=== PATIENT | female | born 2000 | race Caucasian/White ===

== ENCOUNTER 2019-08-28 16:05 | Inpatient (IN) | payer BC ==
--- NOTE | 2019-08-28 16:34 | ED ---
Psychiatric Complaint - HPI Summary HPI Summary: 19-year-old female with a significant past medical history of previous suicide attempt and suicidal ideation presents to the emergency department today with a chief complaint of suicidal ideation. At this time patient does not have a plan but she says "last time I took a bunch of my antidepressants but my mom has them locked up and I cannot do that again." The patient currently denies homicidal ideation. Patient is sent here after suggesting suicidal comments to her counselor and mother and her mother saw a suicide note she wrote. Patient states that yesterday evening she used a razor blade to make to superficial lacerations to her left anterior wrist as well as her right medial thigh. These are not deep enough to require intervention. Patient denies recreational drug use or alcohol use. Patient currently denies pain, fever, cough, sore throat, chest and abdominal pain, pain with urination, rash, nausea, vomiting, diarrhea. - History Of Current Complaint Chief Complaint: EDSuicidal Hx Obtained From: Patient Onset/Duration: Gradual Onset Timing: Constant Character: Depressed, Anxious Related History: Positive For: Prior Psychiatric Issues Has Suicidal: Reports: Thoughts, Demonstrates Gesture. Denies: With A Plan Has Homicidal: Denies: Thoughts, With A Plan, Demonstrates Gesture - Allergies/Home Medications Allergies/Adverse Reactions: Allergies Allergy/AdvReac Type Severity Reaction Status Date / Time No Known Allergies Allergy Verified 08/28/19 16:12 Home Medications: Home Medications Prazosin 1 mg CAP [Minipress 1 mg CAP] 1 mg PO QPM 08/28/19 [History Confirmed 08/28/19] hydrOXYzine pamoate [Vistaril] 25 mg PO BEDTIME PRN 08/28/19 [History Confirmed 08/28/19] lamoTRIgine TAB(*) [LaMICtal TAB(*)] 25 mg PO DAILY 08/28/19 [History Confirmed 08/28/19] PMH/Surg Hx/FS Hx/Imm Hx Infectious Disease History: No Infectious Disease History: Denies: Traveled Outside the [place] in Last 30 Days Review of Systems Constitutional: Negative Eyes: Negative ENT: Negative Cardiovascular: Negative Respiratory: Negative Gastrointestinal: Negative Genitourinary: Negative Musculoskeletal: Negative Skin: Negative Neurological/Mental Status: Negative Positive: Anxious All Other Systems Reviewed And Are Negative: Yes Physical Exam - Summary Physical Exam Summary: Patient is in no distress. There are 2 superficial lacerations noted to the anterior left wrist which are approximately 6 cm in length. Patient has good eye contact however she does have a flat affect. Patient thought process is logical and coherent. No evidence of drug induced toxidrome. Triage Information Reviewed: Yes Vital Signs On Initial Exam: Initial Vitals Temp Pulse Resp BP Pulse Ox 99.6 F 74 16 166/77 100 08/28/19 16:06 08/28/19 16:06 08/28/19 16:06 08/28/19 16:06 08/28/19 16:06 Vital Signs Reviewed: Yes Appearance: Positive: Well-Appearing, No Pain Distress, Well-Nourished Skin: Positive: Warm, Skin Color Reflects Adequate Perfusion Eyes: Positive: EOMI, ABDELRAHMAN ENT: Positive: Hearing grossly normal Respiratory/Lung Sounds: Positive: Clear to Auscultation, Breath Sounds Present Cardiovascular: Positive: RRR, S1, S2 Neurological: Positive: Sensory/Motor Intact, Alert, Oriented to Person Place, Time, Normal Gait, Facial Symmetry, Speech Normal Psychiatric: Positive: Normal, Affect/Mood Appropriate AVPU Assessment: Alert Procedures - Sedation Patient Received Moderate/Deep Sedation with Procedure: No Diagnostics - Vital Signs Vital Signs Temp Pulse Resp BP Pulse Ox 08/28/19 16:06 99.6 F 74 16 166/77 100 - Laboratory Result Diagrams: 08/28/19 17:48 08/28/19 17:48 Lab Statement: Any lab studies that have been ordered have been reviewed, and results considered in the medical decision making process. Course/Dx - Course Course Of Treatment: Patient was evaluated in the emergency department today for suicidal ideation. Patient was seen and examined. Vitals noted. Patient was placed in a safe round and under observation. Patient belongings were collected and laboratory studies and urinalysis including toxicology was obtained. Laboratory studies returned showing no abnormalities. urinalysis appears contaminated however patient has no genitourinary symptoms. Toxicology screening negative. Patient was medically cleared for mental health evaluation and disposition by psychiatric services. Psychiatry, Dr. Busch the patient needed inpatient therapy. Patient was admitted to [facility]'s psychiatric unit with a diagnosis of mood disorder unspecified. - Differential Dx/Clinical Impression Differential Diagnosis/HQI/PQRI: Positive: Acute Psychosis, Anxiety, Depression , Suicidal Ideation, Suicidal Gesture Provider Diagnosis: Suicidal ideation, Mood disorder - Critical Care Time Critical Care Statement: Critical care time is provided exclusive of any time spent performing procedures. Discharge ED - Sign-Out/Discharge Documenting (check all that apply): Patient Departure - Discharge Plan Condition: Stable [place] [place]: Abdi Crespo NP [Primary Care Provider] - - Billing Disposition and Condition Condition: STABLE Disposition: Psychiatric Facility [facility] [place]
[2019-08-28 16:45] LABS: Urine Appearance Turbid; Urine Bilirubin Negative (Negative); Urine Blood 3+ (Negative); Urine Glucose Negative (Negative); Urine Ketones Negative (Negative); Urine Nitrite Negative (Negative); Urine Protein 1+(30 mg/dL) (Negative); Urine Urobilinogen Negative (Negative)
[2019-08-28 16:57] LABS: Urine Color Amber
[2019-08-28 16:58] LABS: Urine Bacteria Absent (Absent); Urine Red Blood Cell 3+(>10/hpf) (Absent); Urine Squamous Epithelial Cell Present (Absent); Urine White Blood Cell 1+(6-10/hpf) (Absent)
[2019-08-28 17:01] LABS: Urine Benzodiazepine Screen None Detected (None Detect); Urine Opiates Screen None Detected (None Detect)
[2019-08-28 18:01] LABS: ABS Basophils 0.1 10^3/ul (0-0.2); ABS Eosinophils 0.2 10^3/ul (0-0.6); ABS Lymphocytes 2.9 10^3/ul (1.0-4.8); ABS Monocytes 0.6 10^3/ul (0-0.8); ABS Neutrophils 6.4 10^3/ul (1.5-7.7); Eosinophil % 2.2 %; Hematocrit 41 % (35-47); Hemoglobin 13.8 g/dL (12.0-16.0); Lymphocyte % 28.9 %; Mean Corpuscular HGB Conc 34 g/dL (31-36); Mean Corpuscular Hemoglobin 30 pg (27-31); Mean Corpuscular Volume 88 fL (80-97); Mean Platelet Volume 8.4 fL (7.4-10.4); Nucleated Red Blood Cells % 0.1; Platelet Count 309 10^3/uL (150-450); Red Blood Count 4.65 10^6 /uL (3.70-4.87); Red Cell Distribution Width 14 % (10-15); White Blood Count 10.2 10^3/uL (3.5-10.8)
[2019-08-28 18:14] LABS: ALT 16 U/L (7-52); AST 16 U/L (13-39); Albumin 4.4 g/dL (3.2-5.2); Albumin/Globulin Ratio 1.4 (1-3); Alkaline Phosphatase 76 U/L (34-104); Anion Gap 5 mmol/L (2-11); BUN/Creatinine Ratio 10.5 (8-20); Blood Urea Nitrogen 12 mg/dL (6-24); CO2 Carbon Dioxide 27 mmol/L (22-32); Calcium 9.7 mg/dL (8.6-10.3); Chloride 105 mmol/L (101-111); EGFR African American 73.5 (>60); EGFR Non-African American 60.8 (>60); Globulin 3.2 g/dL (2-4); Glucose 94 mg/dL (70-100); Potassium 4.1 mmol/L (3.5-5.0); Sodium 137 mmol/L (135-145); Total Protein 7.6 g/dL (6.4-8.9)
[2019-08-28 18:44] LABS: Alcohol < 10 mg/dL (<10); Salicylate < 2.50 mg/dL (<30)
[2019-08-28 18:56] LABS: TSH (Thyroid Stimulating Horm) 0.58 mcIU/mL (0.34-5.60)
[2019-08-28 19:02] LABS: Acetaminophen < 15 mcg/mL
[2019-08-28] MEDS ORDERED: Al Hydrox/Mg Hydrox/Simet LIQ* 30 ML UDC PO PRN (19:50)
[2019-08-29] MEDS: Vitamin THERAPEUTIC TAB PO SCH (08:08)
[2019-08-29] MEDS: lamoTRIgine TAB(*) 25 MG PO SCH (08:08)
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
--- NOTE | 2019-08-29 11:53 | PN ---
BSU: Group Therapy Note - Service Type Service Type: [id number] Group Psychotherapy - Cognitive Behavioral Group Therapy ( CBT):Patient was attentive and participatory in CBT programming this morning, and remained in good behavioral control. Patient expressed positive insights regarding relevant treatment interventions and goals.
[2019-08-29 14:50] LABS: HCG Pregnancy < 0.60 mIU/mL
[2019-08-29 14:56] LABS: Cholesterol 164 mg/dL; HDL Cholesterol 57.1 mg/dL; LDL Cholesterol 77 mg/dL; Triglycerides 150 mg/dL
[2019-08-29] MEDS: hydrOXYzine HCL TAB* 25 MG PO PRN (19:04)
[2019-08-29] MEDS: Acetaminophen TAB* 325 MG PO PRN (21:32)
[2019-08-30] MEDS: lamoTRIgine TAB(*) 25 MG PO SCH (08:15)
[2019-08-30] MEDS: Vitamin THERAPEUTIC TAB PO SCH (08:15)
--- NOTE | 2019-08-30 10:14 | PN ---
Subjective - Subjective Date of Service: 08/30/19 Service Type: [id number] Hosp care 35 min high complexity Subjective: Nursing Report: Patient was visible on unit, no behavioral incidents. Slept 6hrs overnight. Attending group activities. CC: "okay This patient was seen and evaluated today. She reported she feels safe on the unit and is interacting with peers. She reported having adequate appetite and sleep. The patient reports attending day groups. Per nursing no behavioral issues or overnight events reported. Patient reported that she is tolerating medications without side effects. Patient wants to learn, develop and implement coping skills. Objective - General Observations Appearance: Neat Appears Stated Age: Yes Stature: Overweight Posture: Slumped Eye Contact: Average Behavior/Activity: Slowed - Interaction Observations Attitude Towards Examiner: Cooperative Stated Mood: Dysphoric Affect: Restricted Speech Pattern/Tone: Normal Volume Thought Process: Coherent, Goal Directed Perception: WNL Thought Content: Preoccupation/Ruminations, Self-Deprecatory Thought Process: Lethality: Passive Wish Hallucination Type: Denies Delusion Type: Denies - Cognitive Function Orientation: A&O x 4 Level of Consciousness: Awake Cognition: WNL Estimated Intelligence: Normal - Medication Compliance Cooperative with Inpatient Medication Regimen: Yes - Group Participation Participates in Group Activities: Yes Assessment - Assessment Merits Inpatient Hospitalization: For Immediate Safety Clinical Impression: 19 year old Female with a history of bipolar disorder and Borderline personality disorder presented to the emergency department with her mother after writing a suicide note and was admitted to the B[facility] at [facility]. Plan - Plan Treatment Plan: Name: SHO CANNON Birthdate: 2000 [id number] #Q30 minute observation with staff pass and computer # The patient requires psychiatric inpatient admission at this time to assure safety, receive treatment and work toward stabilization. # B-HCG was ordered and is negative # Obtain collateral information from her mother # Collaboration with Geriatric Physical Therapist Marj Corral # MMPI results indicate borderline personality disorder and low self esteem. # Continue lamotrigine 25mg daily for mood # Continue hydroxyzine 25mg qhs for sleep # Continue prazosin 1mg qhs for nightmares #Goals before discharge include: Psychiatric Stabilization Continued Medication Management: Continue Outpt Medication Medications: Current Medications Acetaminophen (Tylenol Tab*) 650 mg PO Q4H PRN PRN Reason: PAIN or TEMP > 101 F Last Admin: 08/29/19 21:32 Dose: 650 mg Al Hydrox/Mg Hydrox/Simethicone (Maalox Plus*) 30 ml PO Q4H PRN PRN Reason: INDIGESTION Hydroxyzine HCl (Atarax Tab*) 25 mg PO BEDTIME PRN PRN Reason: ANXIETY Last Admin: 08/29/19 19:04 Dose: 25 mg Lamotrigine (Lamictal Tab(*)) 25 mg PO DAILY [facility] Last Admin: 08/30/19 08:15 Dose: 25 mg Multivitamins (Theragran Tab*) 1 tab PO DAILY [facility] Last Admin: 08/30/19 08:15 Dose: 1 tab Prazosin HCl (Minipress 1 Mg Cap) 1 mg PO BEDTIME [facility] Last Admin: 08/29/19 21:32 Dose: 1 mg - Discharge Plan Discharge Plan: Inpatient Hospitalization
[2019-08-30] MEDS: hydrOXYzine HCL TAB* 25 MG PO PRN (18:58)
[2019-08-31] MEDS: lamoTRIgine TAB(*) 25 MG PO SCH (09:11)
[2019-08-31] MEDS: Vitamin THERAPEUTIC TAB PO SCH (09:11)
[2019-08-31] MEDS: Acetaminophen TAB* 325 MG PO PRN (14:28)
[2019-08-31] MEDS ORDERED: Saline NASAL SPRAY 0.65%* BTL BOTH NARES PRN (20:48)
[2019-08-31] MEDS: hydrOXYzine HCL TAB* 25 MG PO PRN (21:21)
--- NOTE | 2019-08-31 21:24 | PN ---
Subjective - Subjective Date of Service: 08/31/19 Service Type: 52597 Hosp care 15 min low complexity Subjective: Anette reports her mood is "good, happy." She reports sleeping only 4 hours last night, but that this is an improvement. She denies any dangerous intent or plan of any kind. She reports attending all groups. Objective - General Observations Appearance: Neat Appears Stated Age: Yes Stature: WNL Posture: WNL Eye Contact: Average Behavior/Activity: WNL - Interaction Observations Attitude Towards Examiner: Cooperative Stated Mood: Euthymic Affect: Full Perception: WNL Thought Content: WNL Hallucination Type: None Delusion Type: None - Cognitive Function Orientation: A&O x 4 Level of Consciousness: Awake, Alert, Appropriate Cognition: WNL Estimated Intelligence: Normal Insight: WNL Judgment Within Normal Limits: Yes - Medication Compliance Cooperative with Inpatient Medication Regimen: Yes - Group Participation Participates in Group Activities: Yes Assessment - Assessment Merits Inpatient Hospitalization: For Immediate Safety, For Stabilization, For Discharge Planning Clinical Impression: 19 year old Female with a history of bipolar disorder and Borderline personality disorder presented to the emergency department with her mother after writing a suicide note and was admitted to the BSU at [facility]. 08.31.19 - reports improved sleep, good mood, no dangerous intent or plan Plan - Plan Treatment Plan: Name: ANETTE CANNON Birthdate: 2000 [id number] #Q30 minute observation with staff pass and computer # The patient requires psychiatric inpatient admission at this time to assure safety, receive treatment and work toward stabilization. # B-HCG was ordered and is negative # Obtain collateral information from her mother # Collaboration with Twisting Frame Changer Marj Corral # MMPI results indicate borderline personality disorder and low self esteem. # Continue lamotrigine 25mg daily for mood # Continue hydroxyzine 25mg qhs for sleep # Continue prazosin 1mg qhs for nightmares #Goals before discharge include: Psychiatric Stabilization 08.31.19 - continue current plan Continued Medication Management: Continue Outpt Medication Medications: Current Medications Acetaminophen (Tylenol Tab*) 650 mg PO Q4H PRN PRN Reason: PAIN or TEMP > 101 F Last Admin: 08/31/19 14:28 Dose: 650 mg Al Hydrox/Mg Hydrox/Simethicone (Maalox Plus*) 30 ml PO Q4H PRN PRN Reason: INDIGESTION Hydroxyzine HCl (Atarax Tab*) 25 mg PO BEDTIME PRN PRN Reason: ANXIETY Last Admin: 08/30/19 18:58 Dose: 25 mg Lamotrigine (Lamictal Tab(*)) 25 mg PO DAILY [facility] Last Admin: 08/31/19 09:11 Dose: 25 mg Multivitamins (Theragran Tab*) 1 tab PO DAILY [facility] Last Admin: 08/31/19 09:11 Dose: 1 tab Prazosin HCl (Minipress 1 Mg Cap) 1 mg PO BEDTIME [facility] Last Admin: 08/30/19 21:40 Dose: 1 mg Sodium Chloride (Sodium Chloride 0.65% Nasal [place]*) 2 spray BOTH NARES Q6H PRN PRN Reason: DRYNESS - Discharge Plan Discharge Plan: Outpatient Follow Up - Dr Murray at [facility], therapist at [facility]
[2019-09-01] MEDS: lamoTRIgine TAB(*) 25 MG PO SCH (08:21)
[2019-09-01] MEDS: Vitamin THERAPEUTIC TAB PO SCH (08:21)
[2019-09-01] MEDS: hydrOXYzine HCL TAB* 25 MG PO PRN (20:47)
--- NOTE | 2019-09-02 08:42 | PN ---
Subjective - Subjective Date of Service: 09/02/19 Service Type: [id number] Hosp care 35 min high complexity Subjective: Nursing Report: Patient was visible on unit, no behavioral incidents. Attending group activities. CC: "I am doing better This patient was seen and evaluated today. She reported that during this hospitalization she learned distraction as a coping skill. She expressed that things are better since admission. She is requesting something for sleep other than hydroxyzine. She spoke with her mother over the weekend. She reported having adequate appetite and slept 6 hours. The patient reports attending day groups. Per nursing no behavioral issues or overnight events reported. Patient reported that she is tolerating medications without side effects. Objective - General Observations Appearance: Neat Appears Stated Age: Yes Stature: WNL Posture: Slumped Eye Contact: Average Behavior/Activity: WNL - Interaction Observations Attitude Towards Examiner: Cooperative, Anxious Stated Mood: Euthymic Affect: Restricted Speech Pattern/Tone: Clear, Appropriate Thought Process: Coherent Perception: WNL Thought Content: Preoccupation/Ruminations, Depressive Hallucination Type: Denies Delusion Type: Denies - Cognitive Function Orientation: A&O x 4 Level of Consciousness: Awake Cognition: WNL Estimated Intelligence: Normal - Medication Compliance Cooperative with Inpatient Medication Regimen: Yes - Group Participation Participates in Group Activities: Yes Assessment - Assessment Merits Inpatient Hospitalization: For Immediate Safety Clinical Impression: 19 year old Female with a history of bipolar disorder and Borderline personality disorder presented to the emergency department with her mother after writing a suicide note and was admitted to the BSU at [facility]. Plan - Plan Treatment Plan: Name: SHO CANNON Birthdate: 2000 [id number] #Q30 minute observation with staff pass and computer # The patient requires psychiatric inpatient admission at this time to assure safety, receive treatment and work toward stabilization. # B-HCG was ordered and is negative # Obtained collateral information from her mother Fe who confirmed no access to firearms and is in agreement with discharge plan # Collaboration with Environmental Programs Manager Marj Corral # MMPI results indicate borderline personality disorder and low self esteem. # Continue lamotrigine 25mg daily for mood # Discontinue hydroxyzine 25mg qhs for sleep # Start trazodone 50mg qhs # Continue prazosin 1mg qhs for nightmares # Follow up with Dr. Murray on September 09 #Goals before discharge include: Psychiatric Stabilization # Tentative discharge Monday at 1pm Continued Medication Management: Continue Outpt Medication Medications: Current Medications Acetaminophen (Tylenol Tab*) 650 mg PO Q4H PRN PRN Reason: PAIN or TEMP > 101 F Last Admin: 08/31/19 14:28 Dose: 650 mg Al Hydrox/Mg Hydrox/Simethicone (Maalox Plus*) 30 ml PO Q4H PRN PRN Reason: INDIGESTION Hydroxyzine HCl (Atarax Tab*) 25 mg PO BEDTIME PRN PRN Reason: ANXIETY Last Admin: 09/01/19 20:47 Dose: 25 mg Lamotrigine (Lamictal Tab(*)) 25 mg PO DAILY [facility] Last Admin: 09/01/19 08:21 Dose: 25 mg Multivitamins (Theragran Tab*) 1 tab PO DAILY [facility] Last Admin: 09/01/19 08:21 Dose: 1 tab Prazosin HCl (Minipress 1 Mg Cap) 1 mg PO BEDTIME [facility] Last Admin: 09/01/19 20:47 Dose: 1 mg Sodium Chloride (Sodium Chloride 0.65% Nasal [place]*) 2 spray BOTH NARES Q6H PRN PRN Reason: DRYNESS Last Admin: 09/01/19 11:02 Dose: 2 spray - Discharge Plan Discharge Plan: Inpatient Hospitalization
[2019-09-02] MEDS: Vitamin THERAPEUTIC TAB PO SCH (08:57)
[2019-09-02] MEDS: lamoTRIgine TAB(*) 25 MG PO SCH (08:57)
[2019-09-02] MEDS ORDERED: traZODone TAB* 50 MG TAB PO SCH (21:00)
[2019-09-03 08:25] VITALS: BP 107/60
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
[2019-09-03] MEDS: lamoTRIgine TAB(*) 25 MG PO SCH (09:09)
[2019-09-03] MEDS: Vitamin THERAPEUTIC TAB PO SCH (09:09)
== END 2019-09-03 12:35 | disposition home or self-care (01) | DRG 753 ==
LOC: ED 16:05 → BSU 20:10
PROVIDERS: ADMIT Psychiatry & Neurology Psychiatry; ATTEND Psychiatry & Neurology Psychiatry
DX: F31.30 Bipolar disorder, current episode depressed, mild or moderate severity, unspecified (principal); R45.851 Suicidal ideations; F60.3 Borderline personality disorder; F41.1 Generalized anxiety disorder; Z81.8 Family history of other mental and behavioral disorders; Z81.1 Family history of alcohol abuse and dependence
CPT/HCPCS: 36415; 80053; 80061; 80307; 80320; 80329; 81003; 81015; 83036; 84443; 84702; 85025; 87086; 90853; 99222; 99231; 99233; 99284; A9270-GY; G0480

== ENCOUNTER 2020-01-05 11:53 | Inpatient (IN) ==
[2020-01-05 12:38] LABS: ABS Eosinophils 0.1 10^3/ul (0-0.6); ABS Monocytes 0.5 10^3/ul (0-0.8); ABS Neutrophils 4.7 10^3/ul (1.5-7.7); Eosinophil % 1.6 %; Hematocrit 37 % (35-47); Hemoglobin 12.7 g/dL (12.0-16.0); Lymphocyte % 35.7 %; Mean Corpuscular HGB Conc 34 g/dL (31-36); Mean Corpuscular Hemoglobin 30 pg (27-31); Mean Corpuscular Volume 88 fL (80-97); Platelet Count 315 10^3/uL (150-450); Red Blood Count 4.23 10^6 /uL (3.70-4.87); Red Cell Distribution Width 13 % (10-15); White Blood Count 8.4 10^3/uL (3.5-10.8)
[2020-01-05 12:49] LABS: Urine Appearance Clear; Urine Bilirubin Negative (Negative); Urine Blood Negative (Negative); Urine Color Yellow; Urine Glucose Negative (Negative); Urine Ketones Negative (Negative); Urine Nitrite Negative (Negative); Urine Protein Negative (Negative); Urine Specific Gravity 1.014 (1.010-1.030); Urine Urobilinogen Negative (Negative)
[2020-01-05 12:53] LABS: ALT 11 U/L (7-52); AST 13 U/L (13-39); Albumin/Globulin Ratio 1.3 (1-3); Alkaline Phosphatase 59 U/L (34-104); Anion Gap 6 mmol/L (2-11); BUN/Creatinine Ratio 13.2 (8-20); Blood Urea Nitrogen 10 mg/dL (6-24); CO2 Carbon Dioxide 25 mmol/L (22-32); Calcium 9.6 mg/dL (8.6-10.3); Chloride 105 mmol/L (101-111); EGFR African American 117.4 (>60); Globulin 3.1 g/dL (2-4); Glucose 105 mg/dL (70-100); Potassium 3.8 mmol/L (3.5-5.0); Sodium 136 mmol/L (135-145); Total Protein 7.1 g/dL (6.4-8.9)
[2020-01-05 12:54] LABS: Urine Benzodiazepine Screen None Detected (None Detect); Urine Cannabinoids Screen None Detected (None Detect); Urine Opiates Screen None Detected (None Detect)
[2020-01-05 13:01] LABS: HCG Pregnancy < 0.60 mIU/mL
[2020-01-05 13:21] LABS: Acetaminophen < 15 mcg/mL; Alcohol, S < 10 mg/dL (<10); Salicylate < 2.50 mg/dL (<30)
[2020-01-05] MEDS ORDERED: Saline NASAL SPRAY 0.65% BTL BOTH NARES PRN (15:40)
[2020-01-05] MEDS: DESOG PO SCH (20:54)
[2020-01-05] MEDS: ETHINYL ESTRAD PO SCH (20:54)
[2020-01-05] MEDS: [UNRECOGNIZED DRUG - OTHER] PO SCH (20:54)
[2020-01-06] MEDS: Vitamin THERAPEUTIC TAB PO SCH (08:35)
[2020-01-06 11:34] LABS: TSH Ultra Thyroid Stim Horm 1.49 mcIU/mL (0.34-5.60)
[2020-01-06] MEDS: ETHINYL ESTRAD PO SCH (20:25)
[2020-01-06] MEDS: [UNRECOGNIZED DRUG - OTHER] PO SCH (20:25)
[2020-01-06] MEDS: DESOG PO SCH (20:25)
[2020-01-07] MEDS: Vitamin THERAPEUTIC TAB PO SCH (08:15)
[2020-01-07] MEDS: Al Hydrox/Mg Hydrox/Simet LIQ 30 ML UDC PO PRN (12:58)
[2020-01-07] MEDS: ETHINYL ESTRAD PO SCH (21:37)
[2020-01-07] MEDS: DESOG PO SCH (21:37)
[2020-01-07] MEDS: [UNRECOGNIZED DRUG - OTHER] PO SCH (21:37)
[2020-01-08] MEDS: Vitamin THERAPEUTIC TAB PO SCH (08:20)
[2020-01-08] MEDS: [UNRECOGNIZED DRUG - OTHER] PO SCH (20:37)
[2020-01-08] MEDS: DESOG PO SCH (20:37)
[2020-01-08] MEDS: ETHINYL ESTRAD PO SCH (20:37)
[2020-01-09 07:23] LABS: HDL Cholesterol 47.9 mg/dL
[2020-01-09] MEDS: Vitamin THERAPEUTIC TAB PO SCH (09:50)
[2020-01-09] MEDS: DESOG PO SCH (20:42)
[2020-01-09] MEDS: [UNRECOGNIZED DRUG - OTHER] PO SCH (20:42)
[2020-01-09] MEDS: ETHINYL ESTRAD PO SCH (20:42)
[2020-01-10] MEDS: Vitamin THERAPEUTIC TAB PO SCH (09:15)
[2020-01-10] MEDS: ETHINYL ESTRAD PO SCH (20:02)
[2020-01-10] MEDS: DESOG PO SCH (20:02)
[2020-01-10] MEDS: [UNRECOGNIZED DRUG - OTHER] PO SCH (20:02)
[2020-01-11] MEDS: Vitamin THERAPEUTIC TAB PO SCH (08:40)
[2020-01-11] MEDS: DESOG PO SCH (20:26)
[2020-01-11] MEDS: ETHINYL ESTRAD PO SCH (20:26)
[2020-01-11] MEDS: [UNRECOGNIZED DRUG - OTHER] PO SCH (20:26)
[2020-01-12] MEDS: Al Hydrox/Mg Hydrox/Simet LIQ 30 ML UDC PO PRN (08:42)
[2020-01-12] MEDS: Vitamin THERAPEUTIC TAB PO SCH (09:49)
[2020-01-12 19:41] VITALS: BP 140/68
[2020-01-12] MEDS: [UNRECOGNIZED DRUG - OTHER] PO SCH (20:09)
[2020-01-12] MEDS: DESOG PO SCH (20:09)
[2020-01-12] MEDS: ETHINYL ESTRAD PO SCH (20:09)
[2020-01-13] MEDS: Vitamin THERAPEUTIC TAB PO SCH (08:10)
== END 2020-01-13 10:55 | disposition home or self-care (01) ==
LOC: ED 11:53 → BSU 15:38
PROVIDERS: ADMIT Psychiatry & Neurology Psychiatry; ATTEND Psychiatry & Neurology Psychiatry

== ENCOUNTER 2021-03-02 15:51 | Inpatient (IN) ==
[2021-03-02 16:53] LABS: Urine Appearance Cloudy; Urine Bilirubin Negative (Negative); Urine Blood Negative (Negative); Urine Color Yellow; Urine Glucose Negative (Negative); Urine Ketones Negative (Negative); Urine Nitrite Negative (Negative); Urine Protein Negative (Negative); Urine Specific Gravity 1.029 (1.002-1.030); Urine Urobilinogen Negative (Negative)
[2021-03-02 16:58] LABS: Urine Bacteria 3+ (Absent); Urine Red Blood Cell 1+(3-5/hpf) (Absent); Urine Squamous Epithelial Cell Present (Absent); Urine White Blood Cell 2+(11-20/hpf) (Absent); Urine Yeast Present (Absent)
[2021-03-02 17:12] LABS: Urine Benzodiazepine Screen None Detected (None Detect); Urine Cannabinoids Screen None Detected (None Detect); Urine Opiates Screen None Detected (None Detect)
[2021-03-02 17:52] LABS: ABS Eosinophils 0.2 10^3/ul (0-0.6); ABS Lymphocytes 2.8 10^3/ul (1.0-4.8); ABS Monocytes 0.5 10^3/ul (0-0.8); ABS Neutrophils 6.7 10^3/ul (1.5-7.7); Eosinophil % 1.7 %; Hematocrit 38 % (35-47); Hemoglobin 12.8 g/dL (12.0-16.0); Lymphocyte % 27.6 %; Mean Corpuscular HGB Conc 34 g/dL (31-36); Mean Corpuscular Hemoglobin 30 pg (27-31); Mean Corpuscular Volume 88 fL (80-97); Platelet Count 336 10^3/uL (150-450); Red Blood Count 4.25 10^6 /uL (3.70-4.87); Red Cell Distribution Width 14 % (10-15); White Blood Count 10.3 10^3/uL (3.5-10.8)
[2021-03-02 18:07] LABS: HCG Pregnancy 0.62 mIU/mL
[2021-03-02 18:10] LABS: ALT 12 U/L (7-52); AST 14 U/L (13-39); Albumin 3.9 g/dL (3.2-5.2); Albumin/Globulin Ratio 1.1 (1-3); Alkaline Phosphatase 59 U/L (35-149); Anion Gap 6 mmol/L (2-11); Blood Urea Nitrogen 12 mg/dL (6-24); CO2 Carbon Dioxide 25 mmol/L (22-32); Calcium 9.6 mg/dL (8.6-10.3); Chloride 106 mmol/L (101-111); Globulin 3.4 g/dL (2-4); Glucose 110 mg/dL (70-100); Potassium 3.9 mmol/L (3.5-5.0); Sodium 137 mmol/L (135-145); Total Protein 7.3 g/dL (6.4-8.9)
[2021-03-02 18:25] LABS: Acetaminophen < 15 mcg/mL; Alcohol, S < 13 mg/dL (<13); Salicylate < 2.50 mg/dL (<30)
[2021-03-02 18:37] LABS: TSH Ultra Thyroid Stim Horm 1.11 mcIU/mL (0.34-5.60)
[2021-03-03 06:49] LABS: Rapid COVID-19 Molecular Undetected (Undetected)
[2021-03-03] MEDS: Amoxicillin/Clavul 875/125 TAB (Augmentin 875 tab) PO SCH ×2 (11:50→20:42)
[2021-03-03] MEDS ORDERED: Al Hydrox/Mg Hydrox/Simet LIQ 30 ML UDC PO PRN (12:49)
[2021-03-04] MEDS: Vitamin THERAPEUTIC TAB PO SCH (07:48)
[2021-03-04] MEDS: NORGESTIMATE ETH ESTRADIOL PO SCH (07:59)
[2021-03-04 08:37] LABS: HDL Cholesterol 54.7 mg/dL
[2021-03-04] MEDS ORDERED: Flu vaccine *QUAD* 2021-22* 0.5 ML SYRINGE IM ONE (12:00)
[2021-03-05 07:42] VITALS: BP 127/84
[2021-03-05] MEDS: Vitamin THERAPEUTIC TAB PO SCH (08:45)
[2021-03-05] MEDS: NORGESTIMATE ETH ESTRADIOL PO SCH (08:45)
== END 2021-03-05 13:49 | disposition home or self-care (01) | DRG 753 ==
LOC: ED 15:51 → BSU 03-03 02:50
PROVIDERS: ADMIT Psychiatry & Neurology Psychiatry; ATTEND Psychiatry & Neurology Psychiatry